=== PATIENT | male | born 2000 | race Hispanic/Latino ===

== ENCOUNTER 2023-11-06 10:17 | Emergency (ER) | payer BC, OTHER ==
[~2023-11-06] VITALS: Ht 175.3 cm; Wt 97.5 kg
[2023-11-06] MEDS: 0.9%NACL 1000ML 1,000 ML IV ONE (10:47)
[2023-11-06] MEDS: ONDANSETRON 4MG INJ IVP ONE (10:48)
[2023-11-06] MEDS: KETOROLAC 30MG VIAL (30MG/ML) IVP ONE (10:48)
[2023-11-06 10:49] LABS: APPEARANCE,URINE CLEAR (CLEAR); BILIRUBIN,URINE NEGATIVE (NEGATIVE); COLOR,URINE YELLOW (YELLOW); GLUCOSE, URINE (UA) NEGATIVE (NEGATIVE); KETONES,URINE 10 mg/dL (NEGATIVE); LEUKOCYTE ESTERASE ,URINE NEGATIVE Leu/uL (NEGATIVE); NITRATE,URINE NEGATIVE (NEGATIVE); OCCULT BLOOD,URINE SMALL (NEGATIVE); PH,URINE 6.5 (5.0-8.0); PROTEIN,URINE 30 mg/dL (NEGATIVE); UROBILINOGEN,URINE 0.2 mg/dL (0.2-1.0)
[2023-11-06 10:51] LABS: ADD UA MICROSCOPIC YES
[2023-11-06] MEDS: ONDANSETRON 4MG INJ ONE (10:58)
[2023-11-06 10:59] LABS: BASOPHILS # (AUTO) 0.04 K/uL (0.00-0.20); BASOPHILS % (AUTO) 0.3 % (0.0-5.0); EOSINOPHILS # (AUTO) 0.01 K/uL (0.00-0.70); EOSINOPHILS % (AUTO) 0.1 % (0.0-8.0); HEMATOCRIT 44.2 % (42-54); IMMATURE GRANULOCYTE ABSOLUTE 0.17 K/uL (0-1); LYMPHOCYTES # (AUTO) 0.9 K/uL (1.0-4.8); LYMPHOCYTES % (AUTO) 6.9 % (21.0-51.0); MEAN CORPUSCULAR HEMOGLOBIN 32.4 pg (27.0-33.0); MEAN CORPUSCULAR HGB CONC 34.8 g/dL (32.0-36.0); MEAN CORPUSCULAR VOLUME 92.9 fL (80-100); MONOCYTES # (AUTO) 0.5 K/uL (0.1-1.0); NEUTROPHILS # (AUTO) 11.3 K/uL (1.8-7.7); NEUTROPHILS % (AUTO) 87.4 % (40.0-77.0); PLATELET COUNT (AUTO) 186 K/uL (130-400); RED BLOOD CELL COUNT(AUTO) 4.76 MIL/uL (4.50-6.20); RED CELL DISTRIBUTION WIDTH 11.8 % (11.0-15.5)
[2023-11-06 11:00] LABS: BACTERIA,URINE RARE /HPF (None Seen); MUCUS,URINE RARE LPF (None Seen); SQUAMOUS EPITHELIAL CELL,UR RARE /HPF (0-2); WBC,URINE 0-1 /HPF (0-1)
[2023-11-06 11:12] LABS: CREATININE 1.3 mg/dL (0.5-1.3)
[2023-11-06 11:18] LABS: BILIRUBIN,TOTAL 0.7 mg/dL (0.2-1.0); TOTAL PROTEIN, SERUM 7.5 g/dL (6.0-8.3)
[2023-11-06 11:37] LABS: COVID19 (SARS ANTIGEN RAPID) PRESUMPTIVE NEGATIVE (NEGATIVE); INFLUENZA TYPE A Negative For Type A (NEGATIVE); INFLUENZA TYPE B Negative For Type B (NEGATIVE)
[2023-11-06] MEDS ORDERED: IOHEXOL-350 75 ML VIAL IV ONE (13:21)
[2023-11-06 14:00] VITALS: BP 126/72; PULSE 89; RESP 18; O2SAT 99
[2023-11-06] MEDS ORDERED: DICY20TA2 PO (14:37)
[2023-11-06] MEDS ORDERED: ONDA4TAB10 PO (14:37)
[2023-11-06] MEDS ORDERED: METR-172 PO (14:37)
== END 2023-11-06 15:02 | disposition home or self-care (01) ==
LOC: EDH 10:17
DX: A04.9 Bacterial intestinal infection, unspecified (principal); R19.7 Diarrhea, unspecified; E86.0 Dehydration
CPT/HCPCS: 99284; 74177; 96374; 96361; 96375; 87426; 80053; 83690; 85025; 87040 ×2; 87804 ×2; 83605; 81001; 36415; J7030; J2405; J1885; Q9967